=== PATIENT | female | born 1990 | race Caucasian/White ===

== ENCOUNTER 2019-01-28 11:41 | Emergency (ER) | payer OTHER ==
[2019-01-28 13:15] LABS: ADD UMIC YES; UR ASCORBIC ACID NEGATIVE (NEGATIVE); UR BACTERIA FEW /HPF (NONE SEEN); UR BILIRUBIN (Dip) NEGATIVE (NEGATIVE); UR BLOOD (Dip) NEGATIVE (NEGATIVE); UR CLARITY CLEAR (CLEAR); UR COLOR STRAW (YELLOW); UR GLUCOSE (Dip) NEGATIVE (NEGATIVE); UR KETONES (Dip) NEGATIVE (NEGATIVE); UR LEUKOCYTE ESTERASE (Dip) 1+ Leu/ul (NEGATIVE); UR NITRITE (Dip) NEGATIVE (NEGATIVE); UR RBC 1 /HPF (0-5); UR SPECIFIC GRAVITY (Dip) 1.011 (1.003-1.030); UR SQUAMOUS EPITHELIAL CELL FEW /HPF (FEW); UR TOTAL PROTEIN (Dip) NEGATIVE (NEGATIVE); UR UROBILINOGEN (Dip) NEGATIVE (NEGATIVE); UR WBC 10 /HPF (0-5)
[2019-01-28] MEDS: ACETAMINOPHEN 500 MG TAB PO (16:22)
== END 2019-01-28 16:36 | disposition home or self-care (01) ==
LOC: FTE 11:41
DX: R10.2 Pelvic and perineal pain (principal)
CPT/HCPCS: 76830; 76856; 81001; 81025; 99284-25

== ENCOUNTER 2019-02-27 07:18 | Day surgery (SDC) | payer OTHER ==
[2019-02-27] MEDS ORDERED: CEFAZOLIN 1 GM INJ (07:27)
[2019-02-27] MEDS ORDERED: PROPOFOL 20 ML ×2 (07:27→10:18)
[2019-02-27] MEDS ORDERED: ROCURONIUM 50 MG INJ (07:27)
[2019-02-27] MEDS ORDERED: MIDAZOLAM 1 MG/ML 2 ML INJ (07:28)
[2019-02-27] MEDS ORDERED: KETOROLAC 30 MG INJ (07:28)
[2019-02-27] MEDS ORDERED: ONDANSETRON 4 MG INJ (07:28)
[2019-02-27] MEDS ORDERED: CLINDAMYCIN 600 MG/D5W (PMX) 50 ML IVPB (07:31)
[2019-02-27] MEDS: LIDOCAINE 1%/EPI 30 ML INJ INJ (08:30)
[2019-02-27 08:51] LABS: INR 0.83; PROTIME 11.5 Sec (11.9-14.9); PT RATIO 0.9
[2019-02-27 08:52] LABS: PARTIAL THROMBOPLASTIN TIME 34.3 Sec (23.0-35.0)
[2019-02-27] MEDS ORDERED: GLYCOPYRROLATE 0.4 MG INJ (09:53)
[2019-02-27] MEDS ORDERED: NEOSTIGMINE 3 MG/3 ML SYRINGE (09:53)
[2019-02-27] MEDS ORDERED: ONDANSETRON 4 MG INJ IV (10:00)
[2019-02-27] MEDS ORDERED: FENTAnyl 50 MCG/ML VIAL IV (10:00)
[2019-02-27] MEDS ORDERED: OXYCODONE/ACETAMINOPHEN (5/325) TAB PO (10:00)
[2019-02-27] MEDS: HYDROmorphONE 1 MG/5 ML IV SYRINGE IV (10:46)
== END 2019-02-27 12:56 | disposition home or self-care (01) ==
LOC: SUR 07:18 → SDS 07:18 → SUR 12:56
DX: Z30.2 Encounter for sterilization (principal); D27.0 Benign neoplasm of right ovary
CPT/HCPCS: 58662; 84703; 85610; 85730; 86850; 86900; 86901; 88307

== ENCOUNTER 2019-02-28 09:42 | Emergency (ER) | payer OTHER ==
[2019-02-28] MEDS: morphine 4 MG/ML VIAL IV ×2 (10:14→10:20)
[2019-02-28] MEDS: SOD CHLORIDE 0.9% 1,000 ML IV (10:14)
[2019-02-28] MEDS: ONDANSETRON 4 MG INJ IV ×2 (10:15→10:20)
[2019-02-28 10:23] LABS: ADD MAN DIFF? NO
[2019-02-28 10:25] LABS: BASOPHILS % 0.5 % (0.0-2.0); EOSINOPHILS # 0.1 10^3/ul (0.0-0.5); EOSINOPHILS % 2.2 % (0.0-7.0); HEMATOCRIT 30.4 % (37.0-47.0); HEMOGLOBIN 9.4 g/dl (12.0-16.0); LYMPHOCYTES # 2.1 10^3/ul (0.8-2.9); LYMPHOCYTES % 32.6 % (15.0-51.0); MEAN CORPUSCULAR HEMOGLOBIN 23.7 pg (29.0-33.0); MEAN CORPUSCULAR HGB CONC 30.9 g/dl (32.0-37.0); MEAN CORPUSCULAR VOLUME 76.8 fl (82.0-101.0); MEAN PLATELET VOLUME 9.4 fl (7.4-10.4); MONOCYTE # 0.5 10^3/ul (0.3-0.9); MONOCYTES % 7.8 % (0.0-11.0); NEUTROPHIL # 3.7 10^3/ul (1.6-7.5); NEUTROPHILS % 56.6 % (39.0-77.0); PLATELET COUNT 268 10^3/UL (140-415); RED BLOOD COUNT 3.96 10^6/ul (4.20-5.40); RED CELL DISTRIBUTION WIDTH 15.9 % (11.5-14.5)
[2019-02-28 10:25] LABS: WHITE BLOOD COUNT 6.5 10^3/ul (4.8-10.8)
[2019-02-28 10:38] LABS: ADD UMIC YES; UR ASCORBIC ACID NEGATIVE (NEGATIVE); UR BILIRUBIN (Dip) NEGATIVE (NEGATIVE); UR BLOOD (Dip) 2+ mg/dL (NEGATIVE); UR CLARITY CLEAR (CLEAR); UR COLOR STRAW (YELLOW); UR GLUCOSE (Dip) NEGATIVE (NEGATIVE); UR KETONES (Dip) NEGATIVE (NEGATIVE); UR LEUKOCYTE ESTERASE (Dip) NEGATIVE Leu/ul (NEGATIVE); UR NITRITE (Dip) NEGATIVE (NEGATIVE); UR RBC 0 /HPF (0-5); UR SPECIFIC GRAVITY (Dip) 1.009 (1.003-1.030); UR TOTAL PROTEIN (Dip) NEGATIVE (NEGATIVE); UR UROBILINOGEN (Dip) NEGATIVE (NEGATIVE); UR WBC 1 /HPF (0-5)
[2019-02-28 10:44] LABS: INR 0.97; PARTIAL THROMBOPLASTIN TIME 27.5 Sec (23.0-35.0)
[2019-02-28 10:45] LABS: ALANINE AMINOTRANSFERASE 28 IU/L (13-69); ALBUMIN/GLOBULIN RATIO 1.14; ALKALINE PHOSPHATASE 65 IU/L (42-121); ANION GAP 10 (5-13); ASPARTATE AMINO TRANSFERASE 12 IU/L (15-46); BILIRUBIN,INDIRECT 0.4 mg/dl (0-1.1); BILIRUBIN,TOTAL 0.4 mg/dl (0.2-1.3); BLOOD UREA NITROGEN 10 mg/dl (7-20); CALCIUM 9.3 mg/dl (8.4-10.2); CARBON DIOXIDE 26 mmol/L (21-31); CHLORIDE 108 mmol/L (97-110); CREATININE 0.44 mg/dl (0.44-1.00); Estimated GFR > 60 mL/min (>60); GLUCOSE 95 mg/dl (70-220); LIPASE 80 U/L (23-300); POTASSIUM 4.1 mmol/L (3.5-5.1); SODIUM 144 mmol/L (135-144); TOTAL PROTEIN 7.5 g/dl (6.1-8.1)
[2019-02-28] MEDS: IOHEXOL 100 ML (11:42)
[2019-02-28] MEDS: SOD CHLORIDE 0.9% 100 ML (11:42)
== END 2019-02-28 12:44 | disposition home or self-care (01) ==
LOC: E/R 09:42
DX: G89.18 Other acute postprocedural pain (principal)
CPT/HCPCS: 36415; 71275; 74177; 80053; 81001; 81025; 83690; 85025; 85610; 85730; 93005; 99285-25